=== PATIENT | male | born 1995 | race Caucasian/White ===

== ENCOUNTER 2017-08-29 20:42 | Emergency (ER) | payer SELFPAY ==
[2017-08-29 22:22] LABS: AMPHETAMINE QUAL UR NONE DETECTED (NEG <=1000)
[2017-08-29 23:56] VITALS: BP 122/80
== END 2017-08-29 23:56 | disposition home or self-care (01) ==
LOC: ED 20:42
PROVIDERS: Emergency Medicine
DX: K52.9 Noninfective gastroenteritis and colitis, unspecified (principal)